=== PATIENT | male | born 1955 | race Two or more races ===

== ENCOUNTER → 2020-10-10 | Outpatient (CLI) | payer MEDICARE, BC ==
[~2020-10-10] MED LIST: ASPI-611 PO; ATOR10TA PO; CARV6.253 PO; DOCU100C40 PO; HYDR-3972 PO; INSU100V12 SQ; METF-900 PO
== END | disposition home or self-care (01) ==
LOC: VAS 09:51
PROVIDERS: ATTEND Family Medicine
DX: R53.1 Weakness (principal); R09.89 Other specified symptoms and signs involving the circulatory and respiratory systems
CPT/HCPCS: 93925

== ENCOUNTER 2024-08-07 12:14 | Outpatient (CLI) | payer MEDICARE, BC | END 2024-08-07 23:59 | disposition home or self-care (01) | LOC: RAD 12:14 | PROVIDERS: ATTEND Nurse Practitioner | DX: R13.12 Dysphagia, oropharyngeal phase (principal); I69.391 Dysphagia following cerebral infarction | CPT/HCPCS: 74230 ==